=== PATIENT | female | born 1980 | race Caucasian/White ===

== ENCOUNTER 2016-05-28 16:00 | Inpatient (IN) | payer OTHER ==
[2016-05-28 17:15] VITALS: BMI 28.1
[2016-05-28 18:22] LABS: BASOPHIL 0.1 % (0-2.0); EOSINOPHIL 0.1 % (0-4.5); MCH 33.6 pg (25.7-33.7); MCHC 34.4 g/dl (32.0-36.0); MEAN CELL VOLUME 97.4 fl (80-96); MEAN PLT VOLUME 7.5 fl (7.5-11.1); PLATELET COUNT 253 K/MM3 (134-434); WHITE BLOOD COUNT 10.9 K/mm3 (4.0-10.0)
[2016-05-28 18:35] LABS: INR 0.88 (0.82-1.09); PROTHROMBIN TIME (PATIENT) 9.6 SEC (9.98-11.88)
[2016-05-28 18:37] LABS: ACTIVATED PTT 27.5 SECONDS (26.9-34.4)
[2016-05-28] MEDS ORDERED: TUBERCULIN PPD 5 TU/0.1ML SYRINGE (IN PATIENT USE ONLY) ID ONE (19:00)
[2016-05-28 19:25] LABS: CALCIUM 8.6 mg/dL (8.5-10.1); COCKROFT - GAULT 139.06; CREATININE 0.8 mg/dL (0.55-1.02)
[2016-05-28] MEDS: DEXTROSE 5%-LACTATED RINGERS 1,000 ML IV SCH (19:30)
[2016-05-28] MEDS ORDERED: DINOPROSTONE 10 MG VAGINAL SUPPOSITORY VG ONE (20:30)
--- NOTE | 2016-05-29 07:44 | HP ---
[id number] Chief Complaint: elective induction History of Present Illness: 36 yo EDC EGA 39 weeks admitted for induction History Source: Patient - Past Medical History ...: 1 ...Para: 2 ...Term: 2 ...: 0 ...Spon : 0 ...Induced : 0 ...Multiple Gestation: 0 ...LMP: 08/29/15 ... Weeks Gestation by Dates: 39.0 ...EDC by Dates: 06/04/16 - Past Surgical History Past Surgical History: Yes: None Hx Myomectomy: No Hx Transabdominal Cerclage: No - Smoking History Smoking history: Never smoked Have you smoked in the past 12 months: No - Alcohol/Substance Use Hx Alcohol Use: No Home Medications - Allergies Allergies/Adverse Reactions: Allergies Allergy/AdvReac Type Severity Reaction Status Date / Time No Known Allergies Allergy Verified 05/28/16 16:40 - Home Medications Home Medications: Ambulatory Orders Vitamins (Sjr) - 1 tab PO DAILY 05/28/16 Pyridoxine HCl [Vitamin B-6] 100 mg PO DAILY 05/28/16 Ibuprofen [Motrin -] 600 mg PO QID PRN #28 tablet 05/31/16 Review of Systems - Review of Systems Constitutional: reports: No Symptoms Eyes: reports: No Symptoms HENT: reports: No Symptoms Neck: reports: No Symptoms Cardiovascular: reports: No Symptoms Respiratory: reports: No Symptoms Gastrointestinal: reports: No Symptoms Genitourinary: reports: No Symptoms Breasts: reports: No Symptoms Reported Musculoskeletal: reports: No Symptoms Integumentary: reports: No Symptoms Neurological: reports: No Symptoms Endocrine: reports: No Symptoms Hematology/Lymphatic: reports: No Symptoms Psychiatric: reports: No Symptoms Physical Exam - Maternity Vital Signs: Vital Signs Temperature 98.1 F 05/29/16 06:00 Pulse Rate 90 05/29/16 07:00 Respiratory Rate 20 05/29/16 07:00 Blood Pressure 111/81 05/29/16 07:00 O2 Sat by Pulse Oximetry (%) Constitutional: Yes: Well Nourished, No Distress Neck: Yes: WNL Cardiovascular: Yes: WNL, Regular Rate and Rhythm Lungs: Clear to auscultation Breast(s): Yes: WNL - Abdominal Exam/OB Fundal Height: 39 Number of Fetuses: Single Presentation: Vertex Monitor Mode: External Category: I Accelerations: Non-Uniform Decelerations: None - Vaginal Exam/OB Vaginal Bleediing: No Dilatation (cm): 1 Effacement (%): 70 Presentation: Vertex/Position (cervidil placed) Station: -1 - Physical Exam Musculoskeletal: Yes: WNL Extremities: Yes: WNL Edema: No Integumentary: Yes: WNL - Labs Lab Results: CBC, BMP 05/28/16 17:45 05/28/16 17:45 Problem List - Problems (1) Elective induction of labor planned Code(s): [id number] - Assessment/Plan iup at 39 weeks elective induction Plan Cervidil
--- NOTE | 2016-05-29 07:47 | LDN ---
[id number] 1 accelerations (15bpm x 15sec) in 30 minutes are present, Adequate variability for 10 of the previous 30 minutes Uterine contractions: No more than 5 uterine contractions in 10 min for any 20 min interval, No two contractions greater than 120 seconds duration
[2016-05-29] MEDS ORDERED: OXYTOCIN 15 UNITS/ LR 250 ML 250 ML IVPB SCH (08:00)
[2016-05-29] MEDS: DEXTROSE 5%-LACTATED RINGERS 1,000 ML IV SCH ×4 (08:00→22:15)
--- NOTE | 2016-05-29 17:58 | PN ---
Ante-Partal Exam - Subjective Subjective: Patient tolerating contractions - pitocin at 16. Vital Signs: Vital Signs Temperature 98.3 F 05/29/16 17:00 Pulse Rate 72 05/29/16 17:00 Respiratory Rate 20 05/29/16 17:00 Blood Pressure 130/66 05/29/16 17:00 O2 Sat by Pulse Oximetry (%) Bleeding: No Headache: No Visual changes: No Right upper quadrant pain: No Pain (scale 1-10): 5 - Contractions Contractions: Yes Regularity: Regular Intensity: Moderate Monitor Mode: External - Exam during Labor Heart Rate: 140 Variability: Moderate Category: I Monitor Accelerations: Present Monitor Decelerations: None Exam: Vaginal Dilatation (cm): 3 Effacement (%): 70 Amniotic Membrane Status: Intact Presentation: Vertex Station: -3 - Assessment/Plan Assessment/Plan: 36 y/o with SUIP at 39 weeks, labor induction - FHTs cat 1 - labor induction, continue pitocin and active labor management - GBS negative - anticipate
--- NOTE | 2016-05-29 22:04 | PN ---
Ante-Partal Exam - Subjective Subjective: Pt with 18 mu pitocin no rom desires epidural Vital Signs: Vital Signs Temperature 98.2 F 05/29/16 18:00 Pulse Rate 70 05/29/16 18:00 Respiratory Rate 20 05/29/16 18:00 Blood Pressure 132/72 05/29/16 18:00 O2 Sat by Pulse Oximetry (%) Bleeding: No Headache: No Visual changes: No Right upper quadrant pain: No - Contractions Contractions: Yes Regularity: Regular Intensity: Moderate Monitor Mode: External - Exam during Labor Heart Rate: 130 Variability: Moderate Category: I Monitor Accelerations: Present Monitor Decelerations: None Exam: Vaginal Dilatation (cm): 4 Effacement (%): 70 Amniotic Membrane Status: Ruptured Presentation: Vertex Station: -2 - Assessment/Plan Assessment/Plan: iup at 39.1 weeks elective induction
[2016-05-29] MEDS ORDERED: FENTANYL/BUPIVACAINE/NS/PF - PCEA - 50 ML DISP.SYRIN EP SCH (22:25)
[2016-05-30] MEDS ORDERED: OXYCODONE/APAP 5/325MG COMBO TABLET PO PRN ×2 (00:03)
[2016-05-30] MEDS ORDERED: BISACODYL 10 MG SUPP.RECT RC PRN (00:03)
[2016-05-30] MEDS ORDERED: METHYLERGONOVINE MALEATE 0.2 MG/1 ML AMP IM PRN (00:03)
[2016-05-30] MEDS ORDERED: WITCH HAZEL 50% (TUCKS) 40 PAD/JAR PAD TP PRN (00:03)
[2016-05-30] MEDS ORDERED: SIMETHICONE 80 MG TAB.CHEW (FP) PO PRN (00:03)
[2016-05-30] MEDS ORDERED: BENZOCAINE 20% 57 GM BOTTLE TP PRN (00:03)
[2016-05-30] MEDS ORDERED: BENZOCAINE 28 GM HEMORRHOIDAL OINTMENT PR PRN (00:03)
--- NOTE | 2016-05-30 00:03 | PN ---
Delivery - Delivery Vaginal Delivery: No Problems Type of Anesthesia: Epidural Episiotomy/Laceration: Midline, Perineal Extension/lac, 1st degree EBL (cc): 450 Delivery, Single - Stages of Labor Placenta: Yes: Spontaneous - Condition of Infant Gender: Male Position: OA - [place] Feeding Plan Initial Plan: Exclusive throughout hospitalization
[2016-05-30] MEDS ORDERED: D5W-LR W/ 20 UNITS OXYTOCIN 1,000 ML IV SCH (00:15)
[2016-05-30 00:29] LABS: ARTERIAL BLOOD GAS BASE EXCESS -5.8 meq/l (-2-2); ARTERIAL BLOOD GAS HCO3 21.9 meq/L (22-26)
[2016-05-30 00:30] LABS: ARTERIAL BLOOD GAS pH 7.24 (7.35-7.45)
[2016-05-30 00:33] LABS: ARTERIAL BLD GAS O2 SATURATION 68.9 % (90-98.9); ARTERIAL BLOOD GAS BASE EXCESS -4.8 meq/l (-2-2); ARTERIAL BLOOD GAS HCO3 20.4 meq/L (22-26)
[2016-05-30] MEDS ORDERED: ACETAMINOPHEN 325 MG TABLET (FP) PO PRN ×2 (00:33→00:34)
[2016-05-30 00:34] LABS: ARTERIAL BLOOD GAS pH 7.33 (7.35-7.45)
[2016-05-30] MEDS ORDERED: oxyCODONE HCL 5 MG TABLET PO PRN (00:34)
[2016-05-30 00:35] LABS: ARTERIAL BLOOD GAS PO2 34.5 mmHg (80-100)
[2016-05-30] MEDS: oxyCODONE HCL 5 MG TABLET PO PRN ×3 (08:10→21:22)
[2016-05-30] MEDS: ACETAMINOPHEN 325 MG TABLET (FP) PO PRN (08:10)
[2016-05-30] MEDS ORDERED: DIPHTH,PERTUSS(ACELL),TET 0.5 ML DISP.SYRIN IM ONE (11:00)
[2016-05-30] MEDS: IBUPROFEN 600 MG TABLET (FP) PO PRN ×2 (15:28→21:22)
[2016-05-31 07:24] LABS: BASOPHIL 0.3 % (0-2.0); EOSINOPHIL 0.9 % (0-4.5); MCH 33.3 pg (25.7-33.7); MCHC 33.8 g/dl (32.0-36.0); MEAN CELL VOLUME 98.6 fl (80-96); MEAN PLT VOLUME 7.2 fl (7.5-11.1); NEUTROPHILS 63.7 % (42.8-82.8); PLATELET COUNT 181 K/MM3 (134-434); RDW 12.9 % (11.6-15.6)
--- NOTE | 2016-05-31 09:15 | DS ---
Physical Exam-OTR [employer] Vital Signs: Vital Signs Temperature 98.3 F 05/30/16 22:00 Pulse Rate 78 05/30/16 22:00 Respiratory Rate 18 05/30/16 22:00 Blood Pressure 119/69 05/30/16 22:00 O2 Sat by Pulse Oximetry (%) 100 05/30/16 00:15 Constitutional: Yes: Well Nourished, No Distress, Calm Eyes: Yes: Conjunctiva Clear HENT: Yes: Atraumatic, Normocephalic Neck: Yes: Supple, Trachea Midline Cardiovascular: Yes: Regular Rate and Rhythm Respiratory: Yes: Regular, CTA Bilaterally Gastrointestinal: Yes: Normal Bowel Sounds, Soft ....Post : Yes: Uterus firm, Uterus non-tender Neurological: Yes: Alert, Oriented Psychiatric: Yes: Alert, Oriented Labs: CBC, BMP 05/31/16 06:15 05/28/16 17:45 Delivery - Delivery Vaginal Delivery: No Problems Type of Anesthesia: Epidural Episiotomy/Laceration: Midline, Perineal Extension/lac, 1st degree EBL (cc): 450 Delivery, Single - Stages of Labor Date 1st Stage Initiatied: 05/29/16 Time 1st Stage Initiated: 21:16 Date 2nd Stage Initiated: 05/29/16 Time 2nd Stage Initiated: 21:16 Date of Delivery: 05/29/16 Time of Delivery: 23:06 Time Placenta Delivered: 23:15 Placenta: Yes: Spontaneous - 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 Gender: Male Weight: 7 lb 6 oz Position: OA Total Hours ROM (Hrs/Mins): 2hrs 1min - 1 Minute Total Score: 9 5 Minutes Total Score: 9 - Feeding Plan Initial Plan: Exclusive throughout hospitalization Discharge Summary Reason For Visit: INDUCTION OF LABOR Current Active Problems Elective induction of labor planned (Acute) Procedures: Principal: normal Hospital Course: unremarkable post recovery Condition: Good - Instructions Diet, Activity, Other Instructions: Physical activity Resume your normal everyday activity as tolerated but no heavy lifting or strenuous exercise until seen by your surgeon. You may walk unlimited amounts and climb stairs. You may resume driving the car when you feel safe and comfortable behind the wheel. No sexual activity as instructed. You may shower , no soaking in tubs, pools or baths until cleared by your physician. Diet There are no dietary restrictions. Eat healthy, high-fiber foods. Drink 6 to 8 glasses of liquid each day. This will assist in keeping your bowels regular. Pain management You may take Tylenol or Ibuprofen (for example, Motrin, Advil etc.) as needed for pain. Call MD for any of the following: Severe pain not relieved by medication Fever of 101 or higher Excessive bleeding or drainage on dressing Inability to urinate Referrals: Leticia Hoyos MD [Staff Physician] - (6 weeks) Disposition: HOME - Home Medications Comprehensive Discharge Medication List: Ambulatory Orders Vitamins (Sjr) - 1 tab PO DAILY 05/28/16 Pyridoxine HCl [Vitamin B-6] 100 mg PO DAILY 05/28/16 Ibuprofen [Motrin -] 600 mg PO QID PRN #28 tablet 05/31/16
[2016-05-31 10:49] VITALS: BP 104/62; PULSE 74; TEMP 98.2
[2016-05-31] MEDS: IBUPROFEN 600 MG TABLET (FP) PO PRN (10:56)
[2016-05-31] MEDS: ACETAMINOPHEN 325 MG TABLET (FP) PO PRN (10:57)
== END 2016-05-31 13:50 | disposition home or self-care (01) | DRG 775 ==
LOC: JLDR 16:00 → J3W 05-30 01:15
PROVIDERS: ADMIT Obstetrics & Gynecology; ATTEND Obstetrics & Gynecology
PROC: 0HQ9XZZ Repair Perineum Skin, External Approach (ICD-10-PCS; principal; 2016-05-29)
PROC: 10E0XZZ Delivery of Products of Conception, External Approach (ICD-10-PCS; 2016-05-29)
DX: O70.0 First degree perineal laceration during delivery (principal); Z3A.39 39 weeks gestation of pregnancy; Z37.0 Single live birth
CPT/HCPCS: 36415; 36600; 59409; 80048; 82803; 85025; 85610; 85730; 86593; 86850; 86900; 86901; 90715